=== PATIENT | male | born 1960 | race Caucasian/White ===

== ENCOUNTER 2017-04-08 04:47 | Emergency (ER) | payer MEDICARE, OTHER ==
[~2017-04-08] VITALS: Ht 175.3 cm; Wt 69.3 kg
[~2017-04-08 04:47] MED LIST: AUGMENTIN 875-1 EACH PO; CEPHALEXIN500 MG PO; DOXYCYCLINE HY100 MG PO; LISINOPRIL5 MG PO; NORCO 10-325 T1 EACH PO; NORCO 5-325 TA1 EACH PO; PROAIR HFA8.5 GM INH; SIMVASTATIN20 MG PO; TRAMADOL HCL50 MG PO; VENTOLIN HFA18 GM INH
--- OUTSIDE RECORDS SUMMARY | 2017-04-08 04:58 | XMS | Clinical Summary ---
Demographics + + + | Address | [address] | | | [place] [address] | + + + | Home Phone | | + + + | Preferred Language | Unknown | + + + | Marital Status | Single | + + + | Hindu Affiliation | PRE | + + + | Race | White | + + + | Ethnic Group | Not or | + + + Author + + + | Author | [facility] | + + + | Organization | [facility] | + + + | Address | Unknown | + + + | Phone | Unavailable | + + + Support + + +---------+ + | Name | Relationship | Address | Phone | + + +---------+ + | ANDRÉS PERLA | ECON | Unknown | | + + +---------+ + Care Team Providers + +------+ + | Care Operations Trainer Name | Role | Phone | + +------+ + | Unknown | PP | Unavailable | + +------+ + Source Comments [facility] is fully live on both [facility] and [facility] Allergies Not on File Current Medications Not on file Active Problems Not on file Encounters +--------+ + + + + | Date | Type | Specialty | Care Team | Description | +--------+ + + + + | 04/06/ | Abstract | | Ministerio, | | | 2017 | | | Braden Tran MD | | +--------+ + + + + | 04/06/ | Abstract | | Ministerio, | | | 2017 | | | Braden Tran MD | | +--------+ + + + + from Last 3 Months Social History + +-------+ +--------+------+ | Tobacco Use | Types | Packs/Day | Years | Date | | | | | Used | | + +-------+ +--------+------+ | Never Assessed | | | | | + +-------+ +--------+------+ + + + | Sex Assigned at | Date Recorded | | | | + + + | Not on file | | + + + Plan of Treatment +--------+---------+ + + + | Date | Type | Specialty | Care Team | Description | +--------+---------+ + + + | 04/15/ | Office | | Ministerio, | | | 2018 | Visit | | Braden Tran MD | | | | | | [address] | | | | | | [place], | | | | | | [place] [address] | | | | | | [phone] | | | | | | | | +--------+---------+ + + + + + + + + | Health Maintenance | Due Date | Last Done | Comments | + + + + + | INFLUENZA VACCINE | | | | | (FLU SHOT) | 7 | | | + + + + + Results Not on filefrom Last 3 Months"
--- OUTSIDE RECORDS SUMMARY | 2017-04-08 04:58 | XMS | Clinical Summary ---
Demographics + + + | Address | [address] | | | [place] [address] | + + + | Home Phone | | + + + | Preferred Language | Unknown | + + + | Marital Status | Single | + + + | Orthodox Affiliation | PRE | + + + [...] Team Providers + +------+ + | Care Electrical Assembler Name | Role | Phone | + +------+ + | Unknown | PP | Unavailable | + +------+ + Source Comments [facility]SA is fully live on both [facility] and [facility] Allergies Not on File Current Medications Not [...] MD | | | | | | [address] | | | | | | [place], | | | | | | [place] [address] | | | | | | [phone] | | | | | | | [...]
--- OUTSIDE RECORDS SUMMARY | 2017-04-08 04:58 | XMS | Clinical Summary ---
Demographics + + + | Address | [address] | | | [place] [address] | + + + | Home Phone | | + + + | Preferred Language | Unknown | + + + | Marital Status | Single | + + + | Hoahaoism Affiliation | PRE | + + + [...] Team Providers + +------+ + | Care Mobile Sales Assistant Name | Role | Phone | + +------+ + | Unknown | PP | Unavailable | + +------+ + Source Comments [facility] is fully live on both [facility] and [facility] Allergies Not on File Current Medications [...] MD | | | | | | [address] | | | | | | [place], | | | | | | [place] [address] | | | | | | [phone] | | | | | | | [...]
--- OUTSIDE RECORDS SUMMARY | 2017-04-08 04:58 | XMS | Encounter Summary ---
Demographics + + + | Address | [address] | | | [place] [address] | + + + | Home Phone | | + + + | Preferred Language | Unknown | + + + | Marital Status | Single | + + + | Caodaism Affiliation | PRE | + + + | Race | White | + + + | Ethnic Group | Not or | + + + Author + + + | Author | [facility] | + + + | Organization | [facility] | + + + | Address | Unknown | + + + | Phone | Unavailable | + + + Support + + +---------+ + | Name | Relationship | Address | Phone | + + +---------+ + | ANDRÉS PERLA | ECON | Unknown | | + + +---------+ + Care Team Providers + +------+ + | Care Hose Builder Name | Role | Phone | + +------+ + | Unknown | PCP | Unavailable | + +------+ + Encounter Details +--------+ + + + + | Date | Type | Department | Care Team | Description | +--------+ + + + + | 04/06/ | Abstract | Urology at [facility] | Ministerio, | | | 2017 | | [address] | Braden Tran MD | | | | | Mail Code: CH10U | [address] | | | | | [facility] | [facility] | | | | | and Healing, [address] | [place] [address] | | | | | [place], [place] | [phone] | | | | | [address] | | | | | | [phone] | | | +--------+ + + + + Social History + +-------+ +--------+------+ | Tobacco [...] on file | | + + + as of this encounter Plan of Treatment +--------+---------+ + + + | Date | Type | Specialty | Care Team | Description | +--------+---------+ + + + | 04/15/ | Office | Urology | Ministerio, | | | 2017 | Visit | | Braden Tran MD | | | | | | [address] | | | | | | [place], | | | | | | [place] [address] | | | | | | [phone] | | | | | | | | +--------+---------+ + + + as of this encounter Visit Diagnoses Not on filein this encounter"
--- OUTSIDE RECORDS SUMMARY | 2017-04-08 04:58 | XMS | Encounter Summary ---
Demographics + + + | Address | [address] | | | [place] [address] | + + + | Home Phone | | + + + | Preferred Language | Unknown | + + + | Marital Status | Single | + + + | Oriental Orthodox Affiliation | PRE | + + + | Race | White | + + + | Ethnic Group | Not or | + + + Author + + + | Author | [facility] | + + + | Organization | [facility] | + + + | Address | Unknown | + + + | Phone | Unavailable | + + + Support + + +---------+ + | Name | Relationship | Address | Phone | + + +---------+ + | ANDRÉS PERLA | ECON | Unknown | | + + +---------+ + Care Team Providers + +------+ + | Care Summons Server Name | Role | Phone | + +------+ + | Unknown | PCP | Unavailable | + +------+ + Encounter Details +--------+ + + + + | Date | Type | Department | Care Team | Description | +--------+ + + + + | 04/06/ | Abstract | Urology at [facility] | Ministerio, | | | 2017 | | [address] | Braden Tran MD | | | | | Mail Code: CH10U | [address] | | | | | [facility] | [facility] | | | | | and Healing, [address] | [place] [address] | | | | | [place], [place] | [phone] | | | | | [address] | | | | | | [phone] | | | +--------+ + + + [...] MD | | | | | | [address] | | | | | | [place], | | | | | | [place] [address] | | | | | | [phone] | | | | | | | | +--------+---------+ + + + as of this encounter Visit Diagnoses Not on filein this encounter"
--- OUTSIDE RECORDS SUMMARY | 2017-04-08 04:58 | XMS | Encounter Summary ---
Demographics + + + | Address | [address] | | | [place] [address] | + + + | Home Phone | | + + + | Preferred Language | Unknown | + + + | Marital Status | Single | + + + | Uatsdin Affiliation | PRE | + + + [...] Team Providers + +------+ + | Care Line Puller Name | Role | Phone | + +------+ + | Unknown | PCP | Unavailable | + +------+ + Encounter Details +--------+ + + + + | Date | Type | Department | Care Team | Description | +--------+ + + + + | 04/06/ | Abstract | Urology at [facility] | Ministerio, | | | 2017 | | [address] | Braden Tran MD | | | | | Mail Code: CH10U | [address] | | | | | [facility] | [facility] | | | | | and Healing, [address] | [place] [address] | | | | | [place], [place] | [phone] | | | | | [address] | | | | | | [phone] | | | +--------+ + + + [...] MD | | | | | | [address] | | | | | | [place], | | | | | | [place] [address] | | | | | | [phone] | | | | | | | | +--------+---------+ + + + as of this encounter Visit Diagnoses Not on filein this encounter"
--- OUTSIDE RECORDS SUMMARY | 2017-04-08 04:58 | XMS | Encounter Summary ---
Demographics + + + | Address | [address] | | | [place] [address] | + + + | Home Phone | | + + + | Preferred Language | Unknown | + + + | Marital Status | Single | + + + | Church Affiliation | PRE | + + + | Race | White | + + + | Ethnic Group | Not or | + + + Author + + + | Author | [facility] | + + + | Organization | [facility] | + + + | Address | Unknown | + + + | Phone | Unavailable | + + + Support + + +---------+ + | Name | Relationship | Address | Phone | + + +---------+ + | ANDRÉS PERLA | ECON | Unknown | | + + +---------+ + Care Team Providers + +------+ + | Care Microfilm Duplicating Unit Supervisor Name | Role | Phone | + +------+ + | Unknown | PCP | Unavailable | + +------+ + Encounter Details +--------+ + + + + | Date | Type | Department | Care Team | Description | +--------+ + + + + | 04/06/ | Abstract | Urology at [facility] | Ministerio, | | | 2017 | | [address] | Braden Tran MD | | | | | Mail Code: CH10U | [address] | | | | | [facility] | [facility] | | | | | and Healing, [address] | [place] [address] | | | | | [place], [place] | [phone] | | | | | [address] | | | | | | [phone] | | | +--------+ + + + [...] MD | | | | | | [address] | | | | | | [place], | | | | | | [place] [address] | | | | | | [phone] | | | | | | | | +--------+---------+ + + + as of this encounter Visit Diagnoses Not on filein this encounter"
--- OUTSIDE RECORDS SUMMARY | 2017-04-08 04:58 | XMS | Encounter Summary ---
Demographics + + + | Address | [address] | | | [place] [address] | + + + | Home Phone | | + + + | Preferred Language | Unknown | + + + | Marital Status | Single | + + + | Adventism Affiliation | PRE | + + + | Race | White | + + + | Ethnic Group | Not or | + + + Author + + + | Author | [facility] | + + + | Organization | [facility] | + + + | Address | Unknown | + + + | Phone | Unavailable | + + + Support + + +---------+ + | Name | Relationship | Address | Phone | + + +---------+ + | ANDRÉS PERLA | ECON | Unknown | | + + +---------+ + Care Team Providers + +------+ + | Care Flame Degreaser Name | Role | Phone | + +------+ + | Unknown | PCP | Unavailable | + +------+ + Encounter Details +--------+ + + + + | Date | Type | Department | Care Team | Description | +--------+ + + + + | 04/06/ | Abstract | Urology at [facility] | Ministerio, | | | 2017 | | [address] | Braden Tran MD | | | | | Mail Code: CH10U | [address] | | | | | [facility] | [facility] | | | | | and Healing, [address] | [place] [address] | | | | | [place], [place] | [phone] | | | | | [address] | | | | | | [phone] | | | +--------+ + + + [...] MD | | | | | | [address] | | | | | | [place], | | | | | | [place] [address] | | | | | | [phone] | | | | | | | | +--------+---------+ + + + as of this encounter Visit Diagnoses Not on filein this encounter"
[2017-04-08] MEDS ORDERED: PERCOCET 5-3251 EACH PO (06:01)
== END 2017-04-08 06:15 | disposition home or self-care (01) ==
LOC: ED 04:47
PROC: 0T9B70Z Drainage of Bladder with Drainage Device, Via Natural or Artificial Opening (ICD-10-PCS; principal; 2017-04-08)
PROC: 4A0D7LZ Measurement of Urinary Volume, Via Natural or Artificial Opening (ICD-10-PCS; 2017-04-08)
DX: N28.89 Other specified disorders of kidney and ureter (principal); I10 Essential (primary) hypertension; E78.00 Pure hypercholesterolemia, unspecified; Z88.8 Allergy status to other drugs, medicaments and biological substances; Z79.899 Other long term (current) drug therapy
CPT/HCPCS: 51701; 51798; 80053; 81001; 83690; 85025; 87088; 99284

== ENCOUNTER 2018-11-02 17:22 | Emergency (ER) | payer MEDICARE, OTHER ==
[~2018-11-02] VITALS: Ht 175.3 cm; Wt 66.1 kg
[~2018-11-02 17:22] MED LIST changes: +APRISO0.375 GM PO; +CABOMETYX60 MG PO; +CALCIUM MAGNES1 EAC1 PO; +CORTENEMA100 MG/60 PR; +FAMOTIDINE20 MG PO; +LOMOTIL TABLET1 EACH PO; +ONDANSETRON ODT8 MG PO; +PEPCID20 MG PO; +PERCOCET 5-3251 EACH PO; +PREDNISONE20 MG PO; +TOPROL XL25 MG PO; +TYLENOL325 MG PO; +VENTOLIN HFA18 GM; +VITAMIN A10000 UNIT PO; +VITAMIN B122500 MCG PO; +VITAMIN E400 UNI6 PO; +VOTRIENT200 MG PO
[2018-11-02] MEDS ORDERED: INLYTA5 MG PO (18:01)
== END 2018-11-02 21:49 | disposition home or self-care (01) ==
LOC: ED 17:22
DX: C64.9 Malignant neoplasm of unspecified kidney, except renal pelvis (principal); I10 Essential (primary) hypertension; E78.00 Pure hypercholesterolemia, unspecified; Z87.891 Personal history of nicotine dependence; Z88.8 Allergy status to other drugs, medicaments and biological substances; M79.662 Pain in left lower leg
CPT/HCPCS: 93925; 93971; 99283-25

== ENCOUNTER 2018-11-24 06:25 | Day surgery (SDC) | payer MEDICARE, OTHER ==
[~2018-11-24] VITALS: Ht 175.3 cm; Wt 66.7 kg
[~2018-11-24 06:25] MED LIST changes: +INLYTA5 MG PO; +KEYTRUDA100 MG/4 M IV; +VITAMIN D3400 UNI1 PO
--- NOTE | 2018-11-24 08:05 | NUR ---
PT RESTING-ALERT, ORIENTED AND PCG AT BS. PT FEELS INFORMED, SEEMS TO BE IN GOOD SPIRITS. EXTENDED A BLESSING, WILL FOLLOW NEEDED
--- NOTE | 2018-11-24 10:37 | NUR ---
11/24/18 TISH EVANS PATIENT ARRIVED FROM [place] AT 1028. PATIENT IS MAINTAINING HIS OWN AIRWAY AND O2 SAT IS 100% ON 6L OF OXYGEN. PATIENT WAS ABLE TO ANSWER QUESTIONS BUT REMAIN ASLEEP WHEN NOT STIMULATED. PATIENT APPEARS TO BE COMFORTABLE.
[2018-11-24] MEDS ORDERED: TYLENOL EXTRA500 MG PO (10:53)
[2018-11-24] MEDS ORDERED: IBUPROFEN600 MG PO (10:53)
--- NOTE | 2018-11-24 11:36 | NUR ---
PT ARRIVES TO DS RM 5 FROM PACU AWAKE AND ALERT, SATS ABOVE 94% ON RA. PT DENIES ANY NAUSEA, TOLERATES ORAL. PT RATES PAIN 5/10 ON HEAD WOUND. PT SIGNIFICANT OTHER IN PT ROOM AT BEDSIDE, CALL LIGHT WITHIN REACH.
--- NOTE | 2018-11-24 11:47 | NUR ---
PT PROVIDED PUDDING AND ORAL PAIN MEDICATION.
--- NOTE | 2018-11-24 12:15 | NUR ---
PT PROVIDED ENSURE PER REQUEST, TOLERATES PO WELL DENIES ANY NAUSEA. PT WILL NOTIFY RN WITH URGE TO VOID. PT FAMILY AT BEDSIDE, CALL LIGHT WITHIN REACH.
--- NOTE | 2018-11-24 13:12 | NUR ---
PATIENT PUSHES HIS CALL LIGHT AND ASKS TO USE THE RESTROOM. PATIENT AMBULATES TO THE BATHROOM AND TOLERATES THAT WELL. PATIENT VOIDS 100 ML YELLOW URINE AND IS BACK IN HIS ROOM GETTING DRESSED IN PRESENCE OF FAMILY.
--- NOTE | 2018-11-24 13:38 | NUR ---
LE 1325: PATIENT IS DRESSED AND TRANSFERS HIMSELF TO THE WHEELCHAIR AND THEN TO PERSONAL VEHICLE AND TOLERATES THAT WELL.
--- NOTE | 2018-11-27 11:10 | OR ---
[facility] [address], [place] [address] Signed DATE OF OPERATION: 11/24/2018 SURGEON: Lakhwinder Alex MD PREOPERATIVE DIAGNOSES: 1. History of nephrectomy for renal cell carcinoma. 2. Metastatic renal cell carcinoma to the area of left deltoid, probably left thenar eminence and scalp x3 on the left side. POSTOPERATIVE DIAGNOSES: 1. History of nephrectomy for renal cell carcinoma. 2. Metastatic renal cell carcinoma to the area of left deltoid, probably left thenar eminence and scalp x3 on the left side. PROCEDURES PERFORMED: 1. Excision of left shoulder deltoid metastatic skin cancer, full-thickness with primary closure (9 cm excision size). 2. Excision of left thenar eminence likely metastatic skin lesion full-thickness 2.0 cm. 3. Excision of left scalp lesions, 2 cm, 2 cm, 1 cm, likely metastatic lesions as well. ANESTHESIA: General LMA, Lakhwinder Diaz CRNA. INDICATION: This 58-year-old white man is a patient Dr. rBaden Sifuentes and also Dr. Galloway. He has undergone a nephrectomy for renal cell carcinoma and subsequently developed recurrence of intraabdominal disease as well as a lesion of his left deltoid area. A few weeks ago, I excised the lesion upon referral from Dr. Galloway of the left deltoid area. Although pathologically negative margin was noted, prompt recurrence of the cancer was noted in the same area. On that basis reexcision is anticipated at this time. Additionally, patient has noted a lesion is left palm near the thenar eminence which is highly suggestive of metastatic renal cell carcinoma as well. He also points out 3 lesions of his left scalp, which are bothersome to him and may well represent similar metastatic disease. He is here for excision of all the lesions. He understands the risks of bleeding, infection, wound problems, recurrence, failure to cure the problem, and other unforeseen complications and wished to proceed. FINDINGS: Skin lesion of the left deltoid area was the dominant one and widely excised. A 9 cm excision size was undertaken. A rotational flap, though anticipated as possible, was Electronically Signed By: LAKHWINDER ALEX MD 11/27/18 1110 PATIENT NAME: LUZ PERLA OPERATIVE REPORT DATE OF : 58 REPORT #: [id number] PHYSICIAN: LAKHWINDER ALEX MD PCP: BRADEN SIFUENTES MD REPORT IS CONFIDENTIAL AND NOT TO BE RELEASED WITHOUT AUTHORIZATION [facility] [address] [place] [id number] Signed not required. Primary closure was sufficient. In his left palm, in the area of the thenar eminence, wide excision was undertaken. A 2 cm excision size was accomplished with primary closure. There were 3 lesions on his scalp in the parietal area and 1 in the retro-auricular area, all of them excised independently and closed. They measured 2 cm, 2 cm and 1 cm with an excision size. DESCRIPTION OF PROCEDURE: The patient was brought to the operating room, given a general anesthetic by LMA technique. Preoperative antibiotic Ancef was given. Sequential compression device stockings used and heparin subcutaneously administered. The left scalp area was clipped in the scalp, deltoid area and left palm were prepared with a Betadine based solution. Attention was turned towards the deltoid lesion first. Elliptical excision was undertaken with a markedly negative clinical margin, full thickness in depth. Photographs were taken. The flaps were elevated medially and laterally and advanced and closure was undertaken with #2-0 nylon suture in a vertical mattress configuration. As the arm was almost at the side, this would be considered the maximum tension that would be expected on the wound and closed well. Attention was turned towards the left palmar area, this area had been prepped and draped separately. An elliptical excision was undertaken. Full-thickness excision was taken down to the muscle. Excision size was just over 2 cm. Electrocautery was used for hemostasis. The wound was closed with interrupted #3-0 nylon suture in simple type stitches. Attention was turned towards the scalp. Elliptical excision of 3 separate lesions was undertaken. Excision size for two was 2 cm each and the third 1 cm. They were all closed with interrupted #2-0 nylon combination of vertical mattress as well as simple technique. Bacitracin was applied to the scalp wound as was a Kerlix wrap. The palmar lesion had bacitracin applied and a Band-Aid in a Flexicon dressing and the shoulder a Mepilex silver sponge dressing and an OpSite. BLOOD LOSS: Minimal. COUNTS: Sponge, needle, and instrument counts reported as correct x3. COMPLICATIONS: There were no complications. Electronically Signed By: LAKHWINDER ALEX MD 11/27/18 1110 PATIENT NAME: LUZ PERLA OPERATIVE REPORT DATE OF : 58 REPORT #: [id number] PHYSICIAN: LAKHWINDER ALEX MD PCP: BRADEN SIFUENTES MD REPORT IS CONFIDENTIAL AND NOT TO BE RELEASED WITHOUT AUTHORIZATION [address] [address] Signed MD ROBERTO Ness/MODL /[id number] cc: MD Braden Purcell MD Copies: FROILAN GALLOWAY MD, CHRISTOPHER MD ~ Electronically Signed By: LAKHWINDER ALEX MD 11/27/18 1110 PATIENT NAME: PANLUZ ANDREWS OPERATIVE REPORT DATE OF : 58 REPORT #: [id number] PHYSICIAN: LAKHWINDER ALEX MD PCP: BRADEN SIFUENTES MD REPORT IS CONFIDENTIAL AND NOT TO BE RELEASED WITHOUT AUTHORIZATION
--- NOTE | 2018-11-28 16:39 | PATH ---
[facility] [address] [place], [place] [address] Signed SPECIMEN(S): A LEFT SHOULDER SPECIMEN(S): B LEFT THENAR EMINENCE SPECIMEN(S): C LEFT PARIETAL SCALP, LARGE SPECIMEN(S): D LEFT PARIETAL SCALP, SMALL SPECIMEN(S): E LEFT LATERAL LOWER SCALP SPECIMEN SOURCE: A. LEFT SHOULDER B. LEFT THENAR EMINENCE C. LEFT PARIETAL SCALP, LARGE D. LEFT PARIETAL SCALP, SMALL E. LEFT LATERAL LOWER SCALP CLINICAL HISTORY: Metastatic renal cell carcinomas. FINAL PATHOLOGIC DIAGNOSIS: A. Skin, left shoulder, excision: - Ulceration with underlying granulation tissue with acute and chronic inflammation. - Negative for malignancy (see comment). B. Skin, left thenar eminence, excision: - Metastatic carcinoma, consistent with renal cell carcinoma. C. Skin, left parietal scalp, large lesion, excision: - Ulcerated lesion consistent with metastatic carcinoma, consistent with renal cell origin. - Margins of excision free of neoplasm. D. Skin, left parietal scalp, small lesion, excision: - Consistent with metastatic carcinoma consistent with renal cell origin. - Margins of excision free of neoplasm. E. Skin, left lateral lower scalp, excision: - Ulcerated lesion consistent with metastatic carcinoma, consistent with renal cell origin. - Lesional tissue present on deep and lateral margins. COMMENT: The patient had a previous biopsy of a left shoulder skin nodule received at [facility] 10/06/2018 ([id number]) with a diagnosis with metastatic carcinoma, favor genitourinary origin. LJA:cml:[id number] PATIENT NAME: LUZ PERLA PATHOLOGY DATE OF : 58 REPORT #: [id number] PHYSICIAN: PETEY GOLDBERG PCP: JAY SIFUENTES MD REPORT IS CONFIDENTIAL AND NOT TO BE RELEASED WITHOUT AUTHORIZATION [facility] [address] [place] [id number] Signed MICROSCOPIC EXAMINATION: Histologic sections of all submitted blocks are examined by light microscopy. These findings, together with the gross examination, support the pathologic diagnosis. B: Immunostains for vimentin, CD10, [place]ais-8 and CK-20 are obtained along with appropriately positive controls, the stains performed on B1. The tumor cells are positive for vimentin, CD10 and [place]ais-8 and negative for CK 20. These findings, along with histology, are consistent with metastatic renal cell carcinoma. Neoplasm in C, D, E, and F are histologically similar to identical to that seen in specimen B. GROSS DESCRIPTION: Five specimens are received in five containers, labeled "DB." A. The specimen, labeled "DB, left shoulder," is received in formalin and consists of a 5.2 x 3.0 x 1.2 cm skin excision, oriented as "long = lateral, short = medial." The lateral margin is redesignated as 12 o'clock. The epidermis is hugo-pink and remarkable for a 1.2 x 1.0 cm, hugo-brown and ulcerative lesion located within 1.0 cm of the 3 o'clock and 9 o'clock margins, 1.9 cm of the 12 o'clock margin, and 2.5 cm of the 6 o'clock margin. Inking is as follows: 12 o'clock to 6 o'clock = blue, 6 o'clock to 12 o'clock = black. Sectioning shows brown cut surfaces of the ulcerative lesion extending to a depth of 0.4 cm, to be within 0.4 cm of the deep resection margin. The specimen is entirely submitted from 12 o'clock to 6 o'clock in cassettes (A1-A6). B. The specimen, labeled "DB, left thenar eminence," is received in formalin and consists of a 2.2 x 1.2 x 0.5 cm, unoriented skin excision. The epidermis is hugo-white and remarkable for a 0.6 x 0.5 cm yellow-brown, ulcerative lesion located within 0.2 cm of the nearest resection margin. The specimen is inked blue and serially sectioned to show hugo-white cut surfaces of the lesion extending to abut the deep resection margin. No other discrete lesions are identified. The specimen is entirely submitted in cassette (B1). C. The specimen, labeled "DB, left parietal scalp, large lesion," is received in formalin and consists of a 3.2 x 1.5 x 1.2 cm, unoriented skin excision. The epidermis is uhgo-white and remarkable for a 1.0 x 1.0 x 0.5 cm, hugo-white and focally hemorrhagic nodule located within 0.2 cm of the nearest resection margin. The specimen is inked blue and serially sectioned to show hugo-pink cut PATIENT NAME: LUZ PERLA PATHOLOGY DATE OF : 58 REPORT #: [id number] PHYSICIAN: PETEY GOLDBERG PCP: JAY SIFUENTES MD REPORT IS CONFIDENTIAL AND NOT TO BE RELEASED WITHOUT AUTHORIZATION [address] [address] Signed surfaces of the nodule extending to be within 0.2 cm of the deep margin. No other discrete lesions are grossly identified. The specimen is entirely submitted in cassettes (C1-C2). D. The specimen, labeled "DB, left parietal scalp, small lesion," is received in formalin and consists of a 1.6 x 1.0 x 0.5 cm, unoriented skin excision. The epidermis is hugo-white and remarkable for a 0.5 x 0.5 cm, white nodule located within 0.2 cm of the nearest resection margin. The specimen is inked blue and serially sectioned to show hugo-white cut surfaces of the nodule located within 0.3 cm of the deep margin. No other discrete lesions are identified. The specimen is entirely submitted in cassette (D1). E. The specimen, labeled "DB, left lateral lower scalp," is received in formalin and consists of a 1.6 x 1.1 x 1.0 cm, unoriented skin excision. The epidermis is hugo-white and remarkable for a 0.3 x 0.3 cm, brown nodule located within 0.3 cm of the nearest resection margin. The specimen is inked blue and serially sectioned to show hugo-white and fibrous cut surfaces with no other discrete lesions identified. The specimen is entirely submitted in cassette (E1). AR (under the direct supervision of a pathologist) The Gross Description was prepared using a voice recognition system. The report was reviewed for accuracy; however, sound-alike word errors, addition and/or deletions may occur. If there is any question about this report, please contact Client Services. PERFORMING LABORATORY: The technical component was performed by [facility], [address] [place] [id number] (Circus Performer: Amy Garcia MD; CLIA# [id number]). [facility], [address] [place] [id number] (Circus Performer: Drake Pappas MD; CLIA# [id number]). Diagnostician: Drake Pappas MD Pathologist Electronically Signed 11/28/2018 Copies: ~ PATIENT NAME: LUZ PERLA PATHOLOGY DATE OF : 58 REPORT #: [id number] PHYSICIAN: PETEY PATHOLOGY PCP: JAY SIFUENTES MD REPORT IS CONFIDENTIAL AND NOT TO BE RELEASED WITHOUT AUTHORIZATION
[2019-02-17] MEDS ORDERED: FLONASE ALLERG9.9 ML NAS (11:35)
[2019-03-10] MEDS ORDERED: IRON236 MG PO (10:58)
== END 2018-11-24 13:25 | disposition home or self-care (01) ==
LOC: DS 06:25 → OPS 06:25 → DS 08:30 → OPS 08:30
PROVIDERS: Surgery
PROC: 0HBCXZZ Excision of Left Upper Arm Skin, External Approach (ICD-10-PCS; 2018-11-24)
PROC: 0HB0XZZ Excision of Scalp Skin, External Approach (ICD-10-PCS; 2018-11-24)
PROC: 0HBGXZZ Excision of Left Hand Skin, External Approach (ICD-10-PCS; principal; 2018-11-24 08:30)
DX: C79.2 Secondary malignant neoplasm of skin (principal); C78.7 Secondary malignant neoplasm of liver and intrahepatic bile duct; C64.2 Malignant neoplasm of left kidney, except renal pelvis; L98.499 Non-pressure chronic ulcer of skin of other sites with unspecified severity; L08.9 Local infection of the skin and subcutaneous tissue, unspecified; I10 Essential (primary) hypertension; J45.909 Unspecified asthma, uncomplicated; F12.90 Cannabis use, unspecified, uncomplicated; K21.9 Gastro-esophageal reflux disease without esophagitis; G89.29 Other chronic pain; Z90.5 Acquired absence of kidney; Z89.2 Acquired absence of upper limb above wrist; Z79.899 Other long term (current) drug therapy; Z99.81 Dependence on supplemental oxygen; Z87.891 Personal history of nicotine dependence
CPT/HCPCS: 00400; 88305; 88341; 88342; J0131; J0461; J0690; J1100; J1644; J1885; J2250; J2370; J2405; J2704; J2765; J3010; J7120